=== PATIENT | male | born 2000 | race Hispanic/Latino ===

== ENCOUNTER 2023-02-08 13:19 | Emergency (ER) | payer OTHER, SELFPAY ==
[2023-02-08] VITALS (18 sets, daily range): BP systolic 108–137; BP diastolic 67–95; PULSE 54–76; RESP 13–21; TEMP 36.4; O2SAT 97–100
--- NOTE | ~2023-02-08 | CT_ITS ---
EXAMINATION: CT brain wo con DATE: 02/08/2023 13:59 INDICATION: AMS . TECHNIQUE: Computed tomography (CT) of the head was performed without intravenous contrast. The mA wa s adjusted according to patient size. Iterative reconstruction technique was employed. The dose-lengt h product was 605.33 mGy-cm. COMPARISON: None. FINDINGS: No acute intracranial hemorrhage or extra-axial fluid collection. No hydrocephalus, mass, or herniation. No acute ischemic infarct. Unremarkable dural venous sinus attenuation. No acute osseous abnormality. The aerated spaces are clear. IMPRESSION: No acute intracranial process. Reviewed, dictated and finalized at location K.
--- NOTE | 2023-02-08 13:34 | PC.NURSE ---
Pt ambulates into ER c/o headache and chest pain. Pt states the chest pain has been ongoing since January 19. States he has been having trouble sleeping and feels fearful. States the pain is in the left hand and goes to his chest. Feels like a stabbing and burning pain. Denies any pain medications. January 09 has had a headache. Pt denies any hx or rx. States he is hearing voices. States he has recently stopped drinking alcohol about a month prior after being a heavy drinker. States he has constantly had thoughts of SI. Pt denies any plan or access to a weapon. Pt denies any allergies.
--- NOTE | 2023-02-08 13:36 | ECG_ITS ---
Measurements Intervals [place] Rate: 74 P: 30 IA: 143 QRS: 2 QRSD: 91 T: 11 QT: 375 QTc: 417 Interpretive Statements SINUS RHYTHM BORDERLINE T WAVE ABNORMALITY- INFERIOR LEADS BORDERLINE ECG NO PREVIOUS ECG AVAILABLE FOR COMPARISON Electronically Signed On 02-11-2023 11:07:48 CDT by Elfego Gomez D.O.
[2023-02-08 14:08] LABS: Basophils Percent Auto 0.2 % (0.2-1.2); Eosinophils Absolute Auto 0.1 K/mm3 (0-0.3); Eosinophils Percent Auto 0.8 % (0-4.4); Hematocrit 42.8 % (42.0-52.0); Hemoglobin 14.9 g/dL (14.0-18.0); Immature Granulocyte Absolute 0.01 K/mm3 (0.00-0.031); Immature Granulocyte Percent A 0.2 % (0-0.5); Lymphocytes Absolute Auto 1.74 K/mm3 (0.9-3.2); Lymphocytes Percent Auto 26.5 % (18.3-44.2); Mean Corpuscular HGB Conc 34.8 g/dl (32-36); Mean Corpuscular Hemoglobin 30.9 pg (26-34); Mean Corpuscular Volume 88.8 fl (80-100); Mean Platelet Volume 10.8 fl (7.4-10.4); Monocytes Absolute Auto 0.4 K/mm3 (0.1-0.6); Monocytes Percent Auto 5.9 % (2.6-8.5); Neutrophils Absolute Auto 4.4 K/mm3 (1.3-6.7); Neutrophils Percent Auto 66.4 % (45.5-73.1); Platelet Count Result 227 k/mm3 (150-375); Red Blood Count 4.82 M/mm3 (4.6-6.20); Red Cell Distribution Width 11.6 % (11.5-14.5); White Blood Count 6.6 K/mm3 (4.5-10.0)
[2023-02-08 14:19] LABS: Acetaminophen < 10 ug/mL (10-30); Alanine Aminotransferase 33 U/L (6-50); Albumin Level 5.1 g/dL (3.5-5.1); Alkaline Phosphatase 66 U/L (38-126); Anion Gap 7 mmol/L (8-16); Aspartate Amino Transferase 29 U/L (17-59); Bilirubin,Total 1.2 mg/dL (0.2-1.3); Blood Urea Nitrogen 10 mg/dL (9-20); Calcium 9.7 mg/dL (8.4-10.2); Carbon Dioxide 32 mmol/L (22-30); Chloride 103 mmol/L (98-107); Estimated CRCL calculation 103 ml/min; Estimated Glomerular Filt Rate > 60; Ethanol < 10 mg/dL (<10); Glucose 99 mg/dL (65-110); Potassium 3.5 mmol/L (3.4-5.0); Salicylate < 1.0 mg/dL (2-20); Sodium 142 mmol/L (137-145)
--- NOTE | 2023-02-08 14:40 | ED.GENADULT ---
HPI - General Adult General Chief complaint: Unspecified Stated complaint: headache, hallucinating Time Seen by Provider: 02/08/23 13:43 History of Present Illness HPI narrative: Patient otherwise healthy presenting with mild headache for the last few months, and a sensation that there are people around him that are not there, and hearing voices that aren't there, he is also having some thoughts of hurting himself. No recent drug use. Related Data Allergies Allergy/AdvReac Type Severity Reaction Status Date / Time No Known Allergies Allergy Verified 02/08/23 13:21 Review of Systems Review of Systems: CONST: No fever. HEENT: No sore throat C/V: No chest pain RESP: No cough GI: No nausea or vomiting : No dysuria. M/S: No joint pain. SKIN: No rash. NEURO: Mild headache PSYCH: Hearing voices Exam Narrative: EXAMINATION OF ORGAN SYSTEMS/BODY AREAS: Constitutional: Vital signs per nursing GENERAL:[No acute distress, non-toxic appearing.] HEAD: Normal with no signs of head trauma. NECK: Normal full range of motion no meningismus EYES: EOMI, conjunctiva normal ENT: Hearing grossly intact LUNGS: Nonlabored breathing. HEART: [Regular rate and rhythm] ABD: [Soft], [nontender to palpation] EXT: Normal range of motion SKIN: [No rashes or lesions.] NEURO: [Alert and oriented x 3. No gross focal sensory or strength deficits.] PSYCH: Normal affect Course Vital Signs Vital signs: Vital Signs Temperature 97.6 F 02/08/23 13:25 Pulse Rate 64 02/08/23 13:25 Respiratory Rate 18 02/08/23 13:25 Blood Pressure 134/76 02/08/23 13:25 Pulse Oximetry 100 02/08/23 13:25 Oxygen Delivery Room Air 02/08/23 13:25 Temperature 97.6 F 02/08/23 13:25 Pulse Rate 59 L 02/08/23 17:01 Respiratory Rate 20 02/08/23 17:01 Blood Pressure 113/79 02/08/23 17:01 Pulse Oximetry 98 02/08/23 17:01 Oxygen Delivery Room Air 02/08/23 13:25 Medical Decision Making MDM Narrative Medical decision making narrative: ED COURSE AND MEDICAL DECISION MAKIN-year-old here with mild headache and suicidal ideation/hearing voices for the last few months. Patient without personal or family history of psychiatric history. No focal neurological deficits on exam. I have low concern for encephalopathy or meningitis without meningismus or altered mental status on exam. Psych labs are ordered and essentially unremarkable. I did also obtain a CT head given new onset of symptoms and this is unremarkable. He is given Reglan and Benadryl here for his headache, and on reevaluation is feeling better. Psychiatric team is consulted and the patient is medically cleared for psych evaluation and disposition. came to evaluate the patient, patient is denying any plan to hurt himself or anyone else, he is agreeable to outpatient management and they will follow-up with him tomorrow. Cleared for discharge by psychiatry with safety plan. Family at bedside agreeable with this also. Return precautions provided. Vital Signs Vital Signs: Vital Signs Temperature 97.6 F 02/08/23 13:25 Pulse Rate 64 02/08/23 13:25 Respiratory Rate 18 02/08/23 13:25 Blood Pressure 134/76 02/08/23 13:25 Pulse Oximetry 100 02/08/23 13:25 Oxygen Delivery Room Air 02/08/23 13:25 Temperature 97.6 F 02/08/23 13:25 Pulse Rate 59 L 02/08/23 17:01 Respiratory Rate 20 02/08/23 17:01 Blood Pressure 113/79 02/08/23 17:01 Pulse Oximetry 98 02/08/23 17:01 Oxygen Delivery Room Air 02/08/23 13:25 Lab Data 02/08/23 13:50 02/08/23 13:50 Labs: Lab Results 02/08/23 02/08/23 02/08/23 Range/Units 13:50 14:55 15:00 WBC 6.6 (4.5-10.0) K/mm3 RBC 4.82 (4.6-6.20) M/mm3 Hgb 14.9 (14.0-18.0) g/dL Hct 42.8 (42.0-52.0) % MCV 88.8 (80-100) fl MCH 30.9 (26-34) pg MCHC 34.8 (32-36) g/dl RDW 11.6 (11.5-14.5) % Plt Count 227 (150-375) k/
--- NOTE | 2023-02-08 14:53 | PC.NURSE ---
Addendum entered by Fam Figueredo RN 02/08/23 15:48: ERP orders the 25mg of Benadryl to be PO and the 10mg of reglan to be injected IM. RN repeats the orders back to ERP who confirms the order. Original Note: Pt states his headache is causing him a lot of discomfort. RN reports to ERP who orders 10mg of Reglan IV push and 25mg of Benadryl IV push. RN confirms orders by verbally reading back to ERP.
[2023-02-08] MEDS: diphenhydrAMINE HCl CAP 25 MG CAPSULE PO (15:56)
[2023-02-08] MEDS: METOCLOPRAMIDE HCL INJ 10 MG/2 ML VIAL IM (16:00)
[2023-02-08 16:09] LABS: Amphetamine Screen Urine Negative (Negative); Barbiturate Screen Urine Negative (Negative); Benzodiazepines Screen Urine Negative (Negative); Cannabinoid Screen Urine Negative (Negative); Cocaine Screen Urine Negative (Negative); Methadone Screen Urine Negative (Negative); Opiate Screen Urine Negative (Negative); Phencyclidine Screen Urine Negative (Negative)
--- NOTE | 2023-02-08 16:20 | PC.NURSE ---
crisis at bedside
--- NOTE | 2023-02-08 16:45 | PC.NURSE ---
nuclear worker technician states that pt has been cleared to send home on a safety plan and treat outpatient. States she will speak with ERP about the decision.
[2023-02-08 16:59] LABS: SARS-CoV-2 RNA PCR Negative (Negative)
[2023-02-08 17:08] LABS: Appearance Urine Clear (Clear); Bilirubin Urine Negative (Negative); Blood Urine Negative (Negative); Color Urine Yellow (Yellow); Glucose Urine UA Negative (Negative); Ketones Urine Negative (Negative); Leukocyte Esterase Ur Negative LEU/UL (Negative); Nitrate Urine Negative (Negative); Protein Urine Negative (Negative); Urobilinogen Urine 0.2 mg/dL (<2.0); pH Urine 7.5 (5.0-9.0)
[2023-02-08 17:12] LABS: Add Urine Microscopic? NO
== END 2023-02-08 18:32 | disposition home or self-care (01) ==
PROVIDERS: Emergency Provider Emergency Medicine
DX: F32.A Depression, unspecified (principal); R44.0 Auditory hallucinations; Z20.822 Contact with and (suspected) exposure to COVID-19
CPT/HCPCS: 36415; 70450; 80053; 80307; 81003; 84443; 85025; 93005; 96372; 99284; A9270; J1200; J2765; U0003; U0005

== ENCOUNTER 2023-03-23 19:51 | Emergency (ER) | payer SELFPAY ==
[2023-03-23 19:55] VITALS: BP 132/93; PULSE 96; RESP 20; TEMP 36.8; O2SAT 98
--- NOTE | 2023-03-23 20:23 | ED.GENADULT ---
HPI - General Adult General Chief complaint: Psychiatric Symptoms Stated complaint: psychiatric evaluation - suicidal thought Time Seen by Provider: 03/23/23 20:12 History of Present Illness HPI narrative: Patient 23-year-old gentleman who presents the emergency department with chief complaint of suicidal ideation. Patient reports that has been feeling depressed and has been having thoughts of harming himself the patient states he had a plan yesterday to overdose on pills but is not the patient states he called the crisis hotline and they recommended he come to the emergency department the patient does report that he has seen a counselor and has not been hospitalized previously Related Data Allergies Allergy/AdvReac Type Severity Reaction Status Date / Time No Known Allergies Allergy Verified 03/23/23 20:48 Review of Systems Review of Systems: A 10 system review of systems was completed on the patient and is negative except for what is stated in the HPI. Nursing and ancillary documentation was reviewed. PMFSH Social History Social History Substance use type: does not use Exam Narrative: GENERAL: Well-appearing, well-nourished, and in no acute distress. HEAD: Normocephalic, atraumatic. EYES: PERRLA and EOMI. ENT: Nares clear, no rhinorrhea or epistaxis. Mucous membranes moist. NECK: Supple. CHEST: Clear to auscultation. No respiratory distress. HEART: Regular rate and rhythm. No murmur heard. Normal peripheral pulses. ABDOMEN: Soft, nontender, nondistended, normal active bowel sounds. EXTREMITIES: Normal range of motion. No edema. SKIN: Warm, dry, no rash. NEURO: No focal deficits. Alert and oriented x3. PSYCH: Normal mood and affect. Course Vital Signs Vital signs: Vital Signs Temperature 36.8 C 03/23/23 19:55 Pulse Rate 96 03/23/23 19:55 Respiratory Rate 20 03/23/23 19:55 Blood Pressure 132/93 H 03/23/23 19:55 Pulse Oximetry 98 03/23/23 19:55 Oxygen Delivery Room Air 03/23/23 19:55 Temperature 36.8 C 03/23/23 19:55 Pulse Rate 96 03/23/23 19:55 Respiratory Rate 20 03/23/23 19:55 Blood Pressure 132/93 H 03/23/23 19:55 Pulse Oximetry 98 03/23/23 19:55 Oxygen Delivery Room Air 03/23/23 19:55 Medical Decision Making MDM Narrative Medical decision making narrative: Differential diagnosis includes suicidal ideation, depression Laboratory studies were obtained and the patient which showed normal CBC normal CMP urinalysis showed no evidence of UTI tox screen was negative salicylate and acetaminophen were negative COVID test was negative and flu test was negative. The patient was medically cleared for psychiatric evaluation The patient was seen by the mental health screener and was able to contract for safety and the patient be discharged home to follow-up with his primary care provider and mental health Vital Signs Vital Signs: Vital Signs Temperature 36.8 C 03/23/23 19:55 Pulse Rate 96 03/23/23 19:55 Respiratory Rate 20 03/23/23 19:55 Blood Pressure 132/93 H 03/23/23 19:55 Pulse Oximetry 98 03/23/23 19:55 Oxygen Delivery Room Air 03/23/23 19:55 Temperature 36.8 C 03/23/23 19:55 Pulse Rate 96 03/23/23 19:55 Respiratory Rate 20 03/23/23 19:55 Blood Pressure 132/93 H 03/23/23 19:55 Pulse Oximetry 98 03/23/23 19:55 Oxygen Delivery Room Air 03/23/23 19:55 Lab Data 03/23/23 20:19 03/23/23 20:19 Labs: Lab Results 03/23/23 03/23/23 Range/Units 20:19 20:20 WBC 7.7 (4.5-10.0) K/mm3 RBC 4.69 (4.6-6.20) M/mm3 Hgb 14.7 (14.0-18.0) g/dL Hct 43.0 (42.0-52.0) % MCV 91.7 (80-100) fl MCH 31.3 (26-34) pg MCHC 34.2 (32-36) g/dl RDW 12.4 (11.5-14.5) % Plt Count 275 (150-375) k/mm3 MPV 10.4 (7.4-10.4) fl Immature Gran % (Auto) 0.3 (0-0.5) % Neut % (Auto) 67.3 (45.5-73.
[2023-03-23 20:40] LABS: Basophils Percent Auto 0.4 % (0.2-1.2); Eosinophils Percent Auto 0.5 % (0-4.4); Hemoglobin 14.7 g/dL (14.0-18.0); Immature Granulocyte Absolute 0.02 K/mm3 (0.00-0.031); Immature Granulocyte Percent A 0.3 % (0-0.5); Lymphocytes Absolute Auto 2.03 K/mm3 (0.9-3.2); Lymphocytes Percent Auto 26.5 % (18.3-44.2); Mean Corpuscular HGB Conc 34.2 g/dl (32-36); Mean Corpuscular Hemoglobin 31.3 pg (26-34); Mean Corpuscular Volume 91.7 fl (80-100); Mean Platelet Volume 10.4 fl (7.4-10.4); Monocytes Absolute Auto 0.4 K/mm3 (0.1-0.6); Neutrophils Absolute Auto 5.2 K/mm3 (1.3-6.7); Neutrophils Percent Auto 67.3 % (45.5-73.1); Platelet Count Result 275 k/mm3 (150-375); Red Blood Count 4.69 M/mm3 (4.6-6.20); Red Cell Distribution Width 12.4 % (11.5-14.5); White Blood Count 7.7 K/mm3 (4.5-10.0)
[2023-03-23] MEDS: ACETAMINOPHEN 500 MG TABLET 1000 MG PO (20:48)
[2023-03-23 20:49] LABS: Amphetamine Screen Urine Negative (Negative); Barbiturate Screen Urine Negative (Negative); Benzodiazepines Screen Urine Negative (Negative); Cannabinoid Screen Urine Negative (Negative); Cocaine Screen Urine Negative (Negative); Methadone Screen Urine Negative (Negative); Opiate Screen Urine Negative (Negative); Phencyclidine Screen Urine Negative (Negative)
[2023-03-23 20:54] LABS: Alanine Aminotransferase 28 U/L (6-50); Albumin Level 4.9 g/dL (3.5-5.1); Alkaline Phosphatase 62 U/L (38-126); Anion Gap 7 mmol/L (8-16); Aspartate Amino Transferase 34 U/L (17-59); Bilirubin,Total 0.7 mg/dL (0.2-1.3); Blood Urea Nitrogen 15 mg/dL (9-20); Calcium 9.4 mg/dL (8.4-10.2); Carbon Dioxide 32 mmol/L (22-30); Chloride 101 mmol/L (98-107); Estimated CRCL calculation 84 ml/min; Estimated Glomerular Filt Rate > 60; Glucose 92 mg/dL (65-110); Potassium 4.1 mmol/L (3.4-5.0); Sodium 140 mmol/L (137-145)
[2023-03-23 20:57] LABS: Acetaminophen < 10 ug/mL (10-30); Ethanol < 10 mg/dL (<10); Salicylate < 1.0 mg/dL (2-20)
[2023-03-23 21:10] LABS: Appearance Urine Clear (Clear); Bilirubin Urine Negative (Negative); Blood Urine Negative (Negative); Color Urine Dark Yellow (Yellow); Glucose Urine UA Negative (Negative); Ketones Urine Trace mg/dL (Negative); Leukocyte Esterase Ur Negative LEU/UL (Negative); Nitrate Urine Negative (Negative); Protein Urine Negative (Negative); Urobilinogen Urine 0.2 mg/dL (<2.0); pH Urine 6.5 (5.0-9.0)
[2023-03-23 21:12] LABS: Add Urine Microscopic? NO
[2023-03-23 21:16] LABS: Influenza A QL RT-PCR Negative (Negative); Influenza B QL RT-PCR Negative (Negative); SARS-CoV-2 RNA PCR Negative (Negative)
--- NOTE | 2023-03-23 21:23 | PC.NURSE ---
[facility] called to evaluate patient
[2023-03-23 23:54] VITALS: BP 128/74; PULSE 88; RESP 18; O2SAT 100
== END 2023-03-23 23:55 | disposition home or self-care (01) ==
PROVIDERS: Emergency Provider Emergency Medicine
DX: F32.A Depression, unspecified (principal); R45.851 Suicidal ideations; Z20.822 Contact with and (suspected) exposure to COVID-19
CPT/HCPCS: 36415; 80053; 80307; 81003; 84443; 85025; 87636; 99284; A9270

== ENCOUNTER 2023-09-28 20:12 | Emergency (ER) | payer SELFPAY ==
[2023-09-28 20:30] VITALS: BP 135/85; PULSE 100; RESP 15; TEMP 36.6; O2SAT 99
--- NOTE | 2023-09-28 21:39 | ED.GENADULT ---
HPI - General Adult General Chief complaint: Psychiatric Symptoms <VAL Hess Last Filed: 09/29/23 01:42> Stated complaint: unspecified <Vitaly Franklin PA-C - Last Filed: 09/29/23 01:42> Time Seen by Provider: 09/28/23 20:52 <Vitaly Franklin PA-C - Last Filed: 09/29/23 01:42> Source: patient and corporate licensed broker <VAL Hess Last Filed: 09/29/23 01:42> Mode of arrival: ambulatory <VAL Hess Last Filed: 09/29/23 01:42> Limitations: language barrier <VAL Hess Last Filed: 09/29/23 01:42> History of Present Illness HPI narrative: this is a 24-year-old [place]an-speaking male who presents to the ED with chief complaint of SI and HI. Reports that he has history of bipolar and was seen by psychiatrist earlier this year but never really started taking his medications As prescribed. Reports that he has had increasing thoughts over the past several weeks of wanting to kill himself. He does have a plan, states he would commit suicide by shooting himself. He states he does not have a firearm but has had thoughts of wanting to purposefully get into an altercation in which he would be shot. he states he has passed attempt of suicide by overdose on his medication. States he has never been admitted for this before. Also reports homicidal thoughts. He has thoughts of wanting to hurt his partner, states that he has images of stabbing her with a knife but does not think he could do it. states he used drugs 3 weeks ago but not sure what they were. He does drink alcohol. Denies any medical complaint. <VAL Hess Last Filed: 09/29/23 01:42> Related Data Allergies/adverse reactions: Allergies Allergy/AdvReac Type Severity Reaction Status Date / Time No Known Allergies Allergy Verified 09/28/23 21:50 <VAL Hess Last Filed: 09/29/23 01:42> Review of Systems Review of Systems: All systems as dictated in HPI <Vitaly Franklin PA-C - Last Filed: 09/29/23 01:42> [facility] Social History Social History: Social History (System 03/24/23 @ 09:44 by Ana Paula Hanson) Substance use type: unknown <Vitaly Franklin PA-C - Last Filed: 09/29/23 01:42> Exam Narrative: GENERAL: Well-appearing, well-nourished, and in no acute distress. HEAD: Normocephalic, atraumatic. EYES: PERRLA and EOMI. ENT: Nares clear, no rhinorrhea or epistaxis. Mucous membranes moist. Oropharynx without tonsillar hypertrophy exudate or other lesions. NECK: Supple. No adenopathy or masses. CHEST: No respiratory distress. Clear to auscultation. No wheezes rales or rhonchi HEART: Regular rate and rhythm. No murmur heard. Normal peripheral pulses. ABDOMEN: Soft, nontender, nondistended, normal active bowel sounds. MSK: Normal range of motion. No edema. SKIN: Warm, dry, no rash. NEURO: Alert and oriented x3. No focal deficits. PSYCH: positive for SI. Positive for plan. Positive for HI. Positive for plan. No active hallucinations or delusions. Participate well with exam, answers questions appropriately. <Vitaly Franklin PA-C - Last Filed: 09/29/23 01:42> Course Course Emergency Course: Signed out from overnight physician Dr Yanes who had received sign out from PA. Patient did not require further medication under Dr Yanes's care and did not require any while under my care. I did see him from the doorway where he was resting comfortably, in no distress, protecting his airway. I was informed he had received placement at [facility]. Forms for transportation filled out. Stable for transfer to facility. <Miladis Barraza MD - Last Filed: 10/10/23 19:18> TILE TRIMMER/PA Physician Supervision For this patient encounter, I reviewed the TILE TRIMMER or PA documentation, treatment plan, and medical decision making and I had [id number] time with this patient. I performed all aspects of the MDM as documented. <Ferny Yanes DO - Last Filed: 09/29/23 07:0
[2023-09-28] MEDS: ACETAMINOPHEN 325 MG TABLET 650 MG PO (21:46)
[2023-09-28] MEDS: IBUPROFEN 600 MG TABLET PO (21:46)
[2023-09-28 21:59] LABS: Basophils Percent Auto 0.4 % (0.2-1.2); Eosinophils Absolute Auto 0.1 K/mm3 (0-0.3); Eosinophils Percent Auto 0.8 % (0-4.4); Hematocrit 44.9 % (42.0-52.0); Immature Granulocyte Absolute 0.01 K/mm3 (0.00-0.031); Immature Granulocyte Percent A 0.1 % (0-0.5); Lymphocytes Absolute Auto 1.96 K/mm3 (0.9-3.2); Lymphocytes Percent Auto 24.8 % (18.3-44.2); Mean Corpuscular HGB Conc 33.4 g/dl (32-36); Mean Corpuscular Hemoglobin 30.5 pg (26-34); Mean Corpuscular Volume 91.3 fl (80-100); Mean Platelet Volume 10.3 fl (7.4-10.4); Monocytes Absolute Auto 0.6 K/mm3 (0.1-0.6); Monocytes Percent Auto 7.4 % (2.6-8.5); Neutrophils Absolute Auto 5.3 K/mm3 (1.3-6.7); Neutrophils Percent Auto 66.5 % (45.5-73.1); Platelet Count Result 272 k/mm3 (150-375); Red Blood Count 4.92 M/mm3 (4.6-6.20); Red Cell Distribution Width 11.3 % (11.5-14.5); White Blood Count 7.9 K/mm3 (4.5-10.0)
[2023-09-28 22:08] LABS: Acetaminophen < 10 ug/mL (10-30); Ethanol < 10 mg/dL (<10); Salicylate < 1.0 mg/dL (2-20)
[2023-09-28 22:10] LABS: Alanine Aminotransferase 43 U/L (6-50); Albumin Level 4.9 g/dL (3.5-5.1); Alkaline Phosphatase 72 U/L (38-126); Anion Gap 10 mmol/L (8-16); Aspartate Amino Transferase 37 U/L (17-59); Blood Urea Nitrogen 14 mg/dL (9-20); Calcium 9.7 mg/dL (8.4-10.2); Carbon Dioxide 28 mmol/L (22-30); Chloride 101 mmol/L (98-107); Estimated CRCL calculation 89 ml/min; Estimated Glomerular Filt Rate > 60; Glucose 100 mg/dL (65-110); Potassium 3.3 mmol/L (3.4-5.0); Sodium 139 mmol/L (137-145)
[2023-09-28 22:13] LABS: Amphetamine Screen Urine Negative (Negative); Barbiturate Screen Urine Negative (Negative); Benzodiazepines Screen Urine Negative (Negative); Cannabinoid Screen Urine Negative (Negative); Cocaine Screen Urine Negative (Negative); Methadone Screen Urine Negative (Negative); Opiate Screen Urine Negative (Negative); Phencyclidine Screen Urine Negative (Negative)
[2023-09-28 22:33] LABS: Appearance Urine Turbid (Clear); Bacteria Urine None Seen /hpf; Bilirubin Urine Negative (Negative); Blood Urine Negative (Negative); Color Urine Yellow (Yellow); Glucose Urine UA Negative (Negative); Ketones Urine Negative (Negative); Leukocyte Esterase Ur Negative LEU/UL (Negative); Nitrate Urine Negative (Negative); Non Pathogenic Casts 0-2; Protein Urine Negative (Negative); RBC Urine 0-2 /hpf (0-2); Specific Grav Ur 1.017 (1.001-1.035); Squamous Epithelial Cell Urine None seen /hpf (Few); WBC Urine 0-5 /hpf
[2023-09-28 22:36] LABS: Influenza A QL RT-PCR Negative (Negative); Influenza B QL RT-PCR Negative (Negative); RSV RNA, RT-PCR Negative (Negative); SARS-CoV-2 RNA PCR Negative (Negative)
[2023-09-28 22:53] LABS: Add Urine Microscopic? YES
--- NOTE | 2023-09-28 23:57 | PC.NURSE ---
This RN spoke with pt. States he is feeling calm , and denies SI and HI at this time. States at one time he was homicidal towards his and child, along with having suicidal ideation. Family at bedside at time of evaluation, taken to family services room after assessment by this RN.
[2023-09-29] MEDS: LORazepam (*CRX) 0.5 MG TABLET PO (01:49)
--- NOTE | 2023-09-29 02:57 | PC.NURSE ---
[facility] called and denied admission for pt to their facility.
--- NOTE | 2023-09-29 06:04 | PC.NURSE ---
Pt chart faxed to [facility] around 0430, this RN attempted to call for update but no answer.
--- NOTE | 2023-09-29 06:04 | PC.NURSE ---
this RN went to pt room to make pt and family aware of plan of care for pt. This RN was told by crisis that pt was updated on involuntary admission. Family asked this Rn if pt could go home, this RN explained to family that pt is to be admitted to an inpatient psychiatric facility.
[2023-09-29 06:13] VITALS: BP 121/94; PULSE 73; RESP 15; O2SAT 100
--- NOTE | 2023-09-29 07:42 | PC.NURSE ---
called dietary and ordered breakfast tray for pt at this time
[2023-09-29 09:38] VITALS: BP 127/85; PULSE 78; RESP 17; O2SAT 100
--- NOTE | 2023-09-29 12:14 | PC.NURSE ---
Attempted to call report to Paty, [facility] nurse will call back in 30 minutes for report
--- NOTE | 2023-09-29 12:41 | PC.NURSE ---
This RN attempted to call nurse to nurse report, was told they just got the packet 20 mins ago and need time to go through the chart. Per nurse on phone will call back after reviewing the chart to get nurse to nurse report. [facility] [phone] or [phone]
[2023-09-29 13:05] VITALS: BP 133/82; PULSE 87; RESP 17; O2SAT 99
== END 2023-09-29 14:27 ==
PROVIDERS: Physician Assistant; Emergency Provider Student in an Organized Health Care Education/Training Program
DX: R45.851 Suicidal ideations (principal); R45.850 Homicidal ideations; Z11.52 Encounter for screening for COVID-19; F31.9 Bipolar disorder, unspecified
CPT/HCPCS: 36415; 80053; 80307; 81001; 84443; 85025; 87637; 99285; A9270